=== PATIENT | male | born 1980 | race Caucasian/White ===

== ENCOUNTER 2022-08-28 10:20 | Inpatient (IN) | payer SELFPAY ==
--- NOTE | 2022-08-28 10:32 | W.ED.PSYCHS ---
HPI - Psych General: Chief Complaint: Psychiatric Symptoms Stated Complaint: MHE Time Seen by Provider: 08/28/22 10:32 History of Present Illness: Mr. Leger is a 42-year-old gentleman with history of schizophrenia presenting to the emergency department due to worsening paranoia. He reports symptoms of been worsening for a number of weeks now and he feels anxious at times hearing voices telling him to get out. Denies self-harm or suicidal or homicidal ideation. Otherwise denies medical concerns. Intensity symptoms is moderate to severe. Course is worsened. He is originally from [place] and has had care in [facility] and also possibly care in [place], recently hospitalized in [facility]. Endorses Invega injectable which has made him feel worse as well as Abilify, BuSpar, melatonin all of which have not helped significantly with symptoms. He does stated that prior hospitalizations have helped occasionally. Symptoms have never been extremely well controlled. No other specific changes in health, exacerbating, or alleviating factors identified. Onset (ago): week(s) Duration: getting worse History of same: Yes Context: significant life stressor Associated psychiatric symptoms: racing thoughts and auditory hallucinations Review of Systems General: Reports: 10 or more systems reviewed and unremarkable except in HPI and below PFSH ED PFSH: Medical History Schizophrenia Social History Smoking and tobacco status: current every day smoker e-cigarettes Physical Exam Const: COMMON NORMALS: alert GENERAL APPEARANCE: cooperative and well developed HENMT: COMMON NORMALS: normocephalic and atraumatic HEAD & SCALP: normocephalic and atraumatic Eye: COMMON NORMALS: conjunctivae normal CONJUNCTIVA: Yes conjunctivae normal SCLERA: sclerae normal Neck/C-Spine: COMMON NORMALS: supple GENERAL: Yes trachea midline Resp: COMMON NORMALS: clear to auscultation bilaterally EFFORT & INSPECTION: Yes able to speak in complete sentences AUSCULTATION: clear to auscultation bilaterally Cardio: COMMON NORMALS: regular rate and regular rhythm RATE: regular rate RHYTHM: regular rhythm GI: COMMON NORMALS: Soft to palpation PALPATION: Yes Soft to palpation and No Tenderness to palpation present (GI) Extremity: GENERAL: Yes normal exam except as noted and No edema Neuro: COMMON NORMALS: moves all extremities SENSORIUM/ORIENTATION: Yes alert and No Orientation impaired Psych: COMMON NORMALS: mental status grossly normal and Normal thought process present THOUGHT PROCESS: Normal thought process present Course Vital Signs: Vital signs: Vital Signs Temperature 97.6 F 09/09/22 23:06 Pulse Rate 60 09/09/22 23:06 Respiratory Rate 18 09/09/22 23:06 Blood Pressure 95/61 09/09/22 23:06 Pulse Oximetry 96 09/09/22 23:06 Oxygen Delivery Me thod 09/08/22 22:00 MDM - Psych Medical Decision Making 42-year-old gentleman with psychiatric history presenting with suicidal ideation and worsening paranoia. Exam as above, calm and cooperative. Patient is nontoxic without medical complaints at this time. Labs without significant abnormality on hematologic or metabolic panel. Urine drug screen negative, toxic ingestions negative. Given clinical exam and provided clinical history there is no indication for imaging at this time. Due to worsening symptoms it is reasonable to admit the patient for further psychiatric management. Based on ED evaluation at this point there is no obvious condition that would preclude the patient from inpatient management of psychiatric concerns. The results of ED evaluation were discussed with the patient including plan for admission due to requirement for level of care not available if discharged to prevent significant worsening/deterioration. Patient agreeable with plan. Discussed with psychiatry service who was agreeable to admit patient. Medical Records I reviewed the patient's medical records. Lab Data I reviewed the patient's lab results. 08/28/22 11:58 08/28/22 11:58 Laboratory Results WBC 7.5 10^3/uL (4.0-10.0) 08/28/22 11:58 RBC 4.68 10^6/uL (4.1-5.3) 08/28/22 11:58 Hgb 14.5 g/dL (11.7-16.6) 08/28/22 11:58 Hct 41.3 % (42.0-52.0) L 08/28/22 11:58 MCV 88.2 fl (80-94) 08/28/22 11:58 MCH 31.0 pg (28.0-34.0) 08/28/22 11:58 MCHC 35.1 g/dL (30.0-36.0) 08/28/22 11:58 RDW 12.2 % (12.1-15.1) 08/28/22 11:58 Plt Count 257 10^3/cmm (130-400) 08/28/22 11:58 MPV 10.1 fL (7.4-10.4) 08/28/22 11:58 Neut % (Auto) 73.1 % 08/28/22 11:58 Lymph % (Auto) 18.9 % 08/28/22 11:58 Bartholomew % (Auto) 6.4 % 08/28/22 11:58 Eos % (Auto) 0.8 % 08/28/22 11:58 Baso % (Auto) 0.7 % 08/28/22 11:58 Neut # (Auto) 5.46 10^3/uL (1.8-7.7) 08/28/22 11:58 Lymph # (Auto) 1.4 10^3/uL (0.8-4.8) 08/28/22 11:58 Bartholomew # (Auto) 0.5 10^3/uL (0.2-0.9) 08/28/22 11:58 Eos # (Auto) 0.1 10^3/uL (0.0-0.8) 08/28/22 11:58 Baso # (Auto) 0.1 10^3/uL (0.0-0.1) 08/28/22 11:58 Nucleated RBC % (auto) 0 % 08/28/22 11:58 Nucleated RBCs # 0.0 /100WBC 08/28/22 11:58 Sodium 139 mmol/L (136-145) 08/28/22 11:58 Potassium 4.1 mmol/L (3.5-5.1) 08/28/22 11:58 Chloride 102 mmol/L (98-107) 08/28/22 11:58 Carbon Dioxide 27 mmol/L (22-29) 08/28/22 11:58 Anion Gap 14.1 (5-19) 08/28/22 11:58 BUN 13 mg/dL (6-20) 08/28/22 11:58 Creatinine 0.8 mg/dL (0.7-1.2) 08/28/22 11:58 GFR Calculation 107.1 mL/min (90-130) 08/28/22 11:58 Glucose 94 mg/dL (65-115) 08/28/22 11:58 Calculated Osmolality 288 mOsm/kg (285-295) 08/28/22 11:58 Calcium 9.2 mg/dL (8.5-10.5) 08/28/22 11:58 Total Bilirubin 0.5 mg/dL (0.15-1.2) 08/28/22 11:58 AST 24 U/L (0-40) 08/28/22 11:58 ALT 28 U/L (0-41) 08/28/22 11:58 Alkaline Phosphatase 95 U/L (40-130) 08/28/22 11:58 Total Protein 6.9 g/dL (6.6-8.7) 08/28/22 11:58 Albumin 4.1 g/dL (3.5-5.2) 08/28/22 11:58 Globulin 2.8 g/dL (1.3-4.6) 08/28/22 11:58 TSH 0.85 uIU/mL (0.27-4.20) 08/28/22 11:58 Salicylates < 0.3 mg/dL (3-10) L 08/28/22 11:58 Urine Opiates Screen Negative ng/mL (Negative) 08/28/22 12:15 Acetaminophen < 5.0 ug/mL (10-30) L 08/28/22 11:58 Ur Barbiturates Screen Negative ng/mL (Negative) 08/28/22 12:15 Ur Phencyclidine Scrn Negative ng/mL (Negative) 08/28/22 12:15 Ur Amphetamines Screen Negative ng/mL (Negative) 08/28/22 12:15 U Benzodiazepines Scrn Positive ng/mL (Negative) H 08/28/22 12:15 Urine Cocaine Screen Negative ng/mL (Negative) 08/28/22 12:15 U Marijuana (THC) Screen Negative ng/mL (Negative) 08/28/22 12:15 Ethyl Alcohol < 10 mg/dL (0-10) 08/28/22 11:58 Discharge Plan Discharge Patient Disposition: Admitted As Inpatient Admit Provider: Munir Hamilton Clinical Impression: Schizophrenia, Acute anxiety, Paranoia, Auditory hallucination Condition: Stable Discharge Diet: Regular Discharge Activity: Resume usual activity Coding Level of Care Code ED Staffing Manager for Chg Fwd Exam Comprehensive
[2022-08-28 10:43] VITALS: BP 126/69; PULSE 73; RESP 18; O2SAT 97
[2022-08-28 12:05] LABS: Basophils # 0.1 10^3/uL (0.0-0.1); Basophils % 0.7 %; Eosinophils # 0.1 10^3/uL (0.0-0.8); Eosinophils % 0.8 %; Hematocrit 41.3 % (42.0-52.0); Hemoglobin 14.5 g/dL (11.7-16.6); Lymphocytes # 1.4 10^3/uL (0.8-4.8); Lymphocytes % 18.9 %; Mean Corpuscular HGB Conc 35.1 g/dL (30.0-36.0); Mean Corpuscular Volume 88.2 fl (80-94); Mean Platelet Volume 10.1 fL (7.4-10.4); Monocytes # 0.5 10^3/uL (0.2-0.9); Monocytes % 6.4 %; Neutrophils # 5.46 10^3/uL (1.8-7.7); Neutrophils % 73.1 %; Nucleated Red Blood Cells % 0 %; Platelet Count 257 10^3/cmm (130-400); Red Blood Count 4.68 10^6/uL (4.1-5.3); Red Cell Distribution Width 12.2 % (12.1-15.1); White Blood Count 7.5 10^3/uL (4.0-10.0)
[2022-08-28 12:34] LABS: Amphetamines Screen Urine Negative (Negative); Barbiturates Screen Urine Negative (Negative); Benzodiazepines Screen Urine Positive (Negative); Cocaine Screen Urine Negative (Negative); Opiate Screen Urine Negative (Negative); PCP Screen Urine Negative (Negative); THC Screen Urine Negative (Negative)
[2022-08-28 12:53] LABS: Alanine Aminotransferase 28 U/L (0-41); Albumin Level 4.1 g/dL (3.5-5.2); Alkaline Phosphatase 95 U/L (40-130); Anion Gap 14.1 (5-19); Aspartate Amino Transferase 24 U/L (0-40); Blood Urea Nitrogen 13 mg/dL (6-20); Calcium 9.2 mg/dL (8.5-10.5); Carbon Dioxide 27 mmol/L (22-29); Chloride 102 mmol/L (98-107); Globulin 2.8 g/dL (1.3-4.6); Glomerular Filtration Rate 107.1 mL/min (90-130); Glucose 94 mg/dL (65-115); Osmolality Calculated 288 mOsm/kg (285-295); Potassium 4.1 mmol/L (3.5-5.1); Sodium 139 mmol/L (136-145); Thyroid Stimulating Hormone 0.85 uIU/mL (0.27-4.20); Total Bilirubin 0.5 mg/dL (0.15-1.2); Total Protein 6.9 g/dL (6.6-8.7)
[2022-08-28 12:54] LABS: Acetaminophen < 5.0 ug/mL (10-30); Alcohol Level < 10 mg/dL (0-10); Salicylate < 0.3 mg/dL (3-10)
[2022-08-28 13:56] VITALS: BP 126/69; PULSE 73; RESP 18; O2SAT 97
[2022-08-28 15:00] VITALS: BP 109/59; PULSE 68; RESP 18; TEMP 36.7; O2SAT 95
[2022-08-28] MEDS: magnesium hydroxide 30 mL UDC PO (15:44)
[2022-08-28] MEDS: hyDROXYzine 25 mg Capsule 50 MG PO (15:44)
--- NOTE | 2022-08-28 15:47 | PC.NURSE ---
Admission and PRN Meds Patient stated he was hospitalized right before coming here in [place], [place] for 3-5 days. He says they diagnosed him with schizophrenia and then released him to his aunt. He said he then became very nervous and anxious about being out on his own and afraid because he was hearing voices. Patient denies SI/HI and VH, but states he hears voices throughout the day saying, stop, go, hurry! He states he is homeless and recently split from his . He also says he took his mom's car to come here and that he's worried she'll be really mad at him. He is from [place] and says he moved here recently for a change of scenery and because of the falling out with his . He endorsed abusing alcohol over 5 months ago and that he hasn't drank or used drugs since. Patient stated he was not feeling depressed, but was feeling extremely anxious. Patient bounced both of his legs and ffeet throughout assessment. This RN voiced emotional support and offered patient hydroxyzine 50 mg PO which he then took along with milk of magnesia for constipation since he hadn't had a bowel movement in 4 days.
--- NOTE | 2022-08-28 19:05 | W.PM.NPUH&PS ---
Providers/Chief Complaint Admitting Physician: Munir Hamilton MD Chief Complaint: auditory hallucinations HPI NPU History of Present Illness Ty Leger is a 42 year old male with a history of schizophrenia who initially presented to the emergency department with complaints of active paranoia and auditory hallucinations. He states that his hallucinations had told him to get out of his current place and move. He reports that 2 weeks ago he had been residing in [place] and the voices had told him to go east. He reports that recently he had just been discharged from a psychiatric facility and [facility] after a 3-day stay there approximately 10 days ago. He had reported that he had been prescribed Abilify and Invega Sustenna but states that it has not been helping. He reports no thoughts of hurting himself or others. He states that the voices have been prominent for the past 5 years. He had reported that the auditory hallucinations had initially begun based on use of methamphetamine but states that he has continued to have auditory hallucinations despite not having used in several months. He did not endorse any history of manic symptoms. He had not endorsed any history of depressed mood. He did not endorse any history of active anxiety other than feeling nervous about the voices that were commanding him to move out of his residence area. Inpatient psychiatric history: He reports being hospitalized 4-5 times in the past with a diagnosis schizophrenia beginning at the age of 37. He reports having been hospitalized in [place] in [place] in the past. Outpatient psychiatric history: He reports having been treated under Dr. Canela in [place] on an outpatient basis. He reported his previous psychotropic use included BuSpar, Abilify, Invega intramuscular, Seroquel, and Zyprexa. Drug and alcohol history: He had reported a past history of opiate dependence for which she is currently in Suboxone maintenance program. He had also reported a history of for several years of using methamphetamines but states he has been sober for 5 months after a 10-year history of use of methamphetamine. Medications: Suboxone 8 mg twice a day Medical history: None reported Surgical history: None: Legal history: Patient denies any legal problems currently. Social history: Patient was born and raised in [place] by his biological parents. He had reported that his father had a history of methamphetamine abuse. He has 1 younger sister who also is incarcerated due to methamphetamine related charges. He reported no previous history of sexual physical or emotional abuse. He graduated from high school and currently works in repairing automatic transmissions in vehicles. He had reported having been discharged from the [facility] after 1 year on a general discharge. He reports that he is from his and has 3 children who are currently residing with his . Meds NPU Home Medications Medication Instructions Recorded Confirmed Last Taken Type buprenorphine 8 mg-naloxone 2 mg 1 tab sublingual BID 08/28/22 08/28/22 Unknown History sublingual tablet Allergies Allergy/AdvReac Type Severity Reaction Status Date / Time trazodone Allergy ADR-Confusi Verified 08/28/22 15:58 on ziprasidone [From Geodon] Allergy ADR-Confusi Verified 08/28/22 15:58 on PFSH NPU PFSH: Medical History Schizophrenia Social History Smoking and tobacco status: current every day smoker e-cigarettes Mental Status Exam MSE Comments: He is a disheveled white male who appeared his stated age who was pleasant and cooperative on interview. He had fair eye contact. There was no evidence of any abnormal involuntary motor movements tics or tremors appreciated. His mood was described as anxious. His affect was mood congruent and concerned. His speech was normal in regards to rate rhythm and prosody. His thought process was linear and logical and goal-directed. His thought content showed no evidence of active suicidal or homicidal ideation. He did show evidence of paranoia and did appear to be at times responding to internal stimuli. There was no evidence of any visual hallucinations. His attention and concentration appeared poor. His recent and remote memory appeared grossly intact. he was alert and oriented to person place and time. Vitals/I&O/Wt Last Vital Signs Temp 98.1 F 08/28/22 15:00 Pulse 68 08/28/22 15:00 Resp 18 08/28/22 15:00 BP 109/59 08/28/22 15:00 Pulse Ox 95 08/28/22 15:00 O2 Del Method 08/28/22 14:36 Weight last 48 hrs Weight 95.254 kg Data NPU 08/28/22 11:58 12/22/22 11:58 A&P Assessment and plan (1) Paranoia: (2) Auditory hallucination: (3) Schizophrenia: Plan Ty is a 42-year-old white male with a history of schizophrenia currently noncompliant with his medications with reports of increased paranoia and auditory hallucinations. 1. Discussed risks and benefits of medication with Ty and he was agreeable to trial of Latuda 40 mg at night to target psychosis. 2. Encourage individual group and milieu therapy. 3. Continue every 15 minute checks for safety 4. Recommend sober living treatment at the highest level of care to which the patient is willing to commit 5. Attempt to gather collateral information including previous records of possible Involuntary Hold Information 96 Hour Hold: 96 Hour Involuntary Admission: No Attestations NPU Medical Necessity Statement*: Inpatient hospitalization is medically necessary and clinically appropriate intervention at this time. We will monitor medications and make changes as indicated. Patient will be in the hospital for over 2 midnights with likely length of stay of 5 to 7 days. Coding Level of Care Code New Pt Acute Geophysical Laboratory Supervisor for Nilda Simpson Patient Type New History Problem Focused Exam Problem Focused Medical Decision Making Straight Forward Diagnoses Paranoia F22 Auditory hallucination R44.0 Schizophrenia F20.9
[2022-08-28 19:28] VITALS: BP 109/72; PULSE 60; RESP 18; TEMP 36.7; O2SAT 95
[2022-08-28] MEDS: lurasidone 80 mg Tablet 40 MG PO (20:40)
[2022-08-28] MEDS: buprenorphine-naloxone 4-1 mg Film 2 EACH SUBLINGUAL (20:41)
[2022-08-29 06:00] VITALS: RESP 16
[2022-08-29] MEDS: buprenorphine-naloxone 4-1 mg Film 2 EACH SUBLINGUAL ×2 (08:17→18:12)
--- NOTE | 2022-08-29 10:48 | PC.OT ---
OT Eval attempted - Patient in group at time of evlaution, will attempt again later this day.
[2022-08-29 14:00] VITALS: BP 99/62; PULSE 52; RESP 16; TEMP 36.7; O2SAT 96
--- NOTE | 2022-08-29 19:30 | W.PM.NPUPNS ---
Subjective NPU Subjective: The patient is a 42-year-old white male with a history of schizophrenia admitted with auditory hallucinations and paranoia. He had remained in his room most of the day. He continued to report hearing voices telling him to run. He reported no side effects from his Latuda. He had reported that the voices were not commanding him to hurt himself and he was able to contract for safety. He reported no recent depression. He had reported that he did not have any cravings for opiates and was tolerating Suboxone without any difficulty. He had reported a decline in overall motivation and struggles with completion of tasks including routine activities of daily living. Mental Status Exam MSE Comments: He is a disheveled white male who appeared his stated age who was pleasant and cooperative on interview. He had fair eye contact. There was no evidence of any abnormal involuntary motor movements tics or tremors appreciated. His mood was described as allright His affect was blunted. His speech was normal in regards to rate and monotone. His thought process was linear and logical and goal-directed. His thought content showed no evidence of active suicidal or homicidal ideation. He did show evidence of paranoia and did appear to be at times responding to internal stimuli. There was no evidence of any visual hallucinations and he endorsed auditory hallucinations. His attention and concentration appeared poor. His recent and remote memory appeared grossly intact. he was alert and oriented to person place and time. Vitals/I&O/Wt Last Vital Signs Temp 98.1 F 08/29/22 14:00 Pulse 52 L 08/29/22 14:00 Resp 16 08/29/22 14:00 BP 99/62 08/29/22 14:00 Pulse Ox 96 08/29/22 14:00 O2 Del Method 08/28/22 14:36 Weight last 48 hrs Weight 95.254 kg Data NPU 08/28/22 11:58 08/28/22 11:58 A&P Assessment and plan (1) Paranoia: (2) Auditory hallucination: (3) Schizophrenia: Plan Ty is a 42-year-old white male with a history of schizophrenia currently noncompliant with his medications with reports of increased paranoia and auditory hallucinations. 1. Continue Latuda 40 mg at night and titrate as needed to target psychosis. 2. Encourage individual group and milieu therapy. 3. Continue every 15 minute checks for safety 4. Recommend sober living treatment at the highest level of care to which the patient is willing to commit 5. Attempt to gather collateral information including previous records of possible Involuntary Hold Information 96 Hour Hold: 96 Hour Involuntary Admission: No Attestations NPU Medical Necessity Statement*: Inpatient hospitalization is medically necessary and clinically appropriate intervention at this time. We will monitor medications and make changes as indicated with likely length of stay of 5 to 7 days. Coding Level of Care Code Established Pt Acute Commission Associate for Nilda Simpson Patient Type Established History Problem Focused Exam Problem Focused Medical Decision Making Straight Forward Diagnoses Paranoia F22 Auditory hallucination R44.0 Schizophrenia F20.9
[2022-08-29] MEDS: lurasidone 80 mg Tablet 40 MG PO (21:02)
[2022-08-30 06:00] VITALS: RESP 16
[2022-08-30] MEDS: buprenorphine-naloxone 4-1 mg Film 2 EACH SUBLINGUAL ×2 (09:29→17:34)
[2022-08-30 14:00] VITALS: BP 106/71; PULSE 56; RESP 16; TEMP 36.8; O2SAT 95
--- NOTE | 2022-08-30 18:40 | W.PM.NPUPNS ---
Subjective NPU Subjective: Patient presented today unknown to this insurance underwriter sales. He reports that he is being here for a few days and it he Dr. Hamilton had him working on his psychosis. We reviewed different antipsychotic medications he has taken without success and he did endorse that they started him on Latuda and that he has had some improvement since then. We discussed target doses and continue to work towards discharge next week. Mental Status Exam MSE Comments: This is an overweight versus obese white male in hospital scrubs with limited grooming but adequate eye contact. No vital movement except for mild psychomotor retardation. Cooperative with exam in mild distress. Speech was normal rate, decreased volume. Mood described as a little better. His affect was blunted. His thought process was linear and logical and goal-directed. His thought content showed no evidence of active suicidal or homicidal ideation. He did show evidence of paranoia and did appear to be at times responding to internal stimuli. There was no evidence of any visual hallucinations and he endorsed auditory hallucinations. His attention and concentration appeared intact and his recent and remote memory appeared grossly intact, but none were formally tested. Attention and concentration were intact. He was alert and oriented to person place and time. Insight and judgment appear improving and impulse control is limited. Vitals/I&O/Wt Last Vital Signs Temp 98.2 F 08/30/22 20:31 Pulse 74 08/30/22 20:31 Resp 17 08/30/22 20:31 BP 116/82 08/30/22 20:31 Pulse Ox 97 08/30/22 20:31 O2 Del Method 08/30/22 20:31 Weight last 48 hrs Weight 86.545 kg Data NPU 08/28/22 11:58 08/28/22 11:58 A&P Assessment and plan (1) Paranoia: (2) Auditory hallucination: (3) Schizophrenia: Plan Ty is a 42-year-old white male with a history of schizophrenia currently noncompliant with his medications with reports of increased paranoia and auditory hallucinations. 1. Continue Latuda 40 mg at night and titrate as needed to target psychosis. 2. Encourage individual group and milieu therapy. 3. Continue every 15 minute checks for safety 4. Recommend sober living treatment at the highest level of care to which the patient is willing to commit 5. Attempt to gather collateral information including previous records of possible Involuntary Hold Information 96 Hour Hold: 96 Hour Involuntary Admission: No Attestations NPU Medical Necessity Statement*: Inpatient hospitalization is medically necessary and clinically appropriate intervention at this time. We will monitor medications and make changes as indicated. Likely length of stay of 4-6 days. Coding Level of Care Code Acute Public Health Outreach Worker for [facility] Fwd Diagnoses Paranoia F22 Auditory hallucination R44.0 Schizophrenia F20.9
[2022-08-30] MEDS: lurasidone 80 mg Tablet 40 MG PO (20:21)
[2022-08-30 20:31] VITALS: BP 116/82; PULSE 74; RESP 17; TEMP 36.8; O2SAT 97
[2022-08-31 06:00] VITALS: RESP 18
[2022-08-31] MEDS: buprenorphine-naloxone 4-1 mg Film 2 EACH SUBLINGUAL ×2 (08:42→20:17)
--- NOTE | 2022-08-31 11:21 | W.PM.NPUPNS ---
Subjective NPU Subjective: Patient presents today reporting that he feels his psychosis is resolving but that he is still feeling anxious. We discussed the risks, benefits and alternatives of a trial of Neurontin 100 mg p.o. 3 times daily and he understood and agreed to proceed as is documented in this note. He reported having it before but not being clear if it was for anxiety but he would be willing to try. He reported that Vistaril and BuSpar have been ineffective in attempting to decrease his anxiety in the past. Mental Status Exam MSE Comments: This is an overweight versus obese white male in hospital scrubs with limited grooming but adequate eye contact. No vital movement except for mild psychomotor retardation. Cooperative with exam in mild distress. Speech was normal rate, decreased volume. Mood described as a little anxious. His affect was congruent and brighter. His thought process was linear and logical and goal-directed. His thought content showed no evidence of active suicidal or homicidal ideation. He did show evidence of paranoia but does not currently appear to be responding to internal stimuli. There was no evidence of any visual hallucinations and he endorsed auditory hallucinations. His attention and concentration appeared intact and his recent and remote memory appeared grossly intact, but none were formally tested. Attention and concentration were intact. He was alert and oriented to person place and time. Insight and judgment appear improving and impulse control is limited. Vitals/I&O/Wt Last Vital Signs Temp 98.2 F 08/30/22 20:31 Pulse 74 08/30/22 20:31 Resp 18 08/31/22 06:00 BP 116/82 08/30/22 20:31 Pulse Ox 97 08/30/22 20:31 O2 Del Method 08/30/22 20:31 Weight last 48 hrs Weight 86.545 kg Data NPU 08/28/22 11:58 08/28/22 11:58 A&P Assessment and plan (1) Paranoia: (2) Auditory hallucination: (3) Schizophrenia: Plan Ty is a 42-year-old white male with a history of schizophrenia currently noncompliant with his medications with reports of increased paranoia and auditory hallucinations. 1. Continue Latuda 40 mg at night and titrate as needed to target psychosis. Start Neurontin 100 mg p.o. 3 times daily for anxiety.. 2. Encourage individual group and milieu therapy. 3. Continue every 15 minute checks for safety 4. Recommend sober living treatment at the highest level of care to which the patient is willing to commit 5. Attempt to gather collateral information including previous records of possible Involuntary Hold Information 96 Hour Hold: 96 Hour Involuntary Admission: No Attestations NPU Medical Necessity Statement*: Inpatient hospitalization is medically necessary and clinically appropriate intervention at this time. We will monitor medications and make changes as indicated. Likely length of stay of 2-4 days. Coding Level of Care Code Acute Blueprinting And Photocopy Supervisor for Nilda Simpson Diagnoses Paranoia F22 Auditory hallucination R44.0 Schizophrenia F20.9
[2022-08-31 14:00] VITALS: BP 103/62; PULSE 62; RESP 18; TEMP 36.8; O2SAT 94
[2022-08-31 20:01] VITALS: BP 105/76; PULSE 98; RESP 18; TEMP 36.9; O2SAT 99
[2022-08-31] MEDS: lurasidone 80 mg Tablet 40 MG PO (20:18)
[2022-09-01 06:00] VITALS: RESP 18
[2022-09-01] MEDS: buprenorphine-naloxone 4-1 mg Film 2 EACH SUBLINGUAL ×2 (08:35→17:29)
[2022-09-01] MEDS: gabapentin 100 mg Capsule PO ×3 (08:35→19:38)
[2022-09-01 14:00] VITALS: BP 98/70; PULSE 50; RESP 16; TEMP 36.7; O2SAT 93
--- NOTE | 2022-09-01 14:09 | W.PM.NPUPNS ---
Subjective NPU Subjective: Patient presented today reporting that he is feeling a little better with the Neurontin. We discussed a thought about possibly getting into addiction treatment. He also discussed the possibility of going back home but he was not sure. We discussed the fact that Dr. Hamilton would be here tomorrow and they would be able to continue a discussion about discharge planning. He reports that he is eating fine and sleeping better. Mental Status Exam MSE Comments: This is an overweight versus obese white male in hospital scrubs with limited grooming but adequate eye contact. No vital movement except for mild psychomotor retardation. Cooperative with exam in mild distress. Speech was normal rate, decreased volume. Mood described as a little better. His affect was congruent and brighter. His thought process was linear and logical and goal-directed. His thought content showed no evidence of active suicidal or homicidal ideation. He did show evidence of paranoia but does not currently appear to be responding to internal stimuli. There was no evidence of any visual hallucinations and he endorsed auditory hallucinations. His attention and concentration appeared intact and his recent and remote memory appeared grossly intact, but none were formally tested. Attention and concentration were intact. He was alert and oriented to person place and time. Insight and judgment appear improving and impulse control is limited. Vitals/I&O/Wt Last Vital Signs Temp 98.0 F 09/01/22 14:00 Pulse 50 L 09/01/22 14:00 Resp 16 09/01/22 14:00 BP 98/70 09/01/22 14:00 Pulse Ox 93 09/01/22 14:00 O2 Del Method 09/01/22 14:00 Weight last 48 hrs Weight 89.902 kg Data NPU 08/28/22 11:58 08/28/22 11:58 A&P Assessment and plan (1) Paranoia: (2) Auditory hallucination: (3) Schizophrenia: Plan Ty is a 42-year-old white male with a history of schizophrenia currently noncompliant with his medications with reports of increased paranoia and auditory hallucinations. 1. Continue Latuda 40 mg at night and titrate as needed to target psychosis. Started Neurontin 100 mg p.o. 3 times daily for anxiety. 2. Encourage individual group and milieu therapy. 3. Continue every 15 minute checks for safety 4. Recommend sober living treatment at the highest level of care to which the patient is willing to commit 5. Attempt to gather collateral information including previous records of possible Involuntary Hold Information 96 Hour Hold: 96 Hour Involuntary Admission: No Attestations NPU Medical Necessity Statement*: Inpatient hospitalization is medically necessary and clinically appropriate intervention at this time. We will monitor medications and make changes as indicated. Likely length of stay of 2-4 days. Coding Level of Care Code Acute Home Health [facility]na for [facility] Diagnoses Paranoia F22 Auditory hallucination R44.0 Schizophrenia F20.9
[2022-09-01] MEDS: lurasidone 80 mg Tablet 40 MG PO (19:37)
[2022-09-01 19:56] VITALS: BP 118/79; PULSE 82; RESP 18; TEMP 36.3; O2SAT 98
[2022-09-01] MEDS: nicotine 4 mg lozenge MUCOUS MEM (21:45)
[2022-09-02 06:00] VITALS: RESP 18
[2022-09-02] MEDS: gabapentin 100 mg Capsule PO ×3 (08:18→19:54)
[2022-09-02] MEDS: buprenorphine-naloxone 4-1 mg Film 2 EACH SUBLINGUAL ×2 (08:18→17:22)
--- NOTE | 2022-09-02 13:49 | P.NPUPN_ITS ---
Subjective NPU Subjective: The patient is a 42-year-old white male with a history of schizophrenia admitted with auditory hallucinations and paranoia. The patient continue to report active presence of auditory hallucinations but reports that he continues to feel that it has been less distracting. He reports some rivera nued paranoia. He reports no cravings for opiates. He reports that he intends on returning back to [place] when he is stabilized. He denies any mood symptoms currently. He does report that he struggles with isolation and anxiety. He reports that he feels less distracted by the thoughts and voices when he is by himself and has been minimally attending group on the milieu. He has been engaging in increased amounts of completion of activities of daily living including brushing and engaging in physical self-care. Mental Status Exam MSE Comments: This is an overweight versus obese white male in hospital scrubs with limited grooming but adequate eye contact. No vital movement except for mild psychomotor retardation. Cooperative with exam in mild distress. Speech was normal rate, decreased volume. Mood described as okay. His affect was mood incongruent, and blunted. His thought process was linear and logical and goal- directed. There was less evidence of thought blocking. His thought content showed no evidence of active suicidal or homicidal ideation. He did show evidence of paranoia and did not appear to be actively responding to internal stimuli. There was no evidence of any visual hallucinations and he endorsed auditory hallucinations. His attention and concentration appeared intact and his recent and remote memory appeared grossly intact, but none were formally tested. Attention and concentration were intact. He was alert and oriented to person place and time. Insight and judgment appear improving and impulse control is limited. Vitals/I&O/Wt Last Vital Signs Temp 97.3 F L 09/01/22 19:56 Pulse 82 09/01/22 19:56 Resp 18 09/02/22 06:00 BP 118/79 09/01/22 19:56 Pulse Ox 98 09/01/22 19:56 O2 Del Method 08/30/22 20:31 Data NPU 08/28/22 11:58 08/28/22 11:58 A&P Assessment and plan (1) Paranoia: (2) Auditory hallucination: (3) Schizophrenia: Plan Ty is a 42-year-old white male with a history of schizophrenia currently noncompliant with his medications with reports of increased paranoia and auditory hallucinations. 1. Increase Latuda to 60 mg at night and titrate as needed to target psychosis. Continue Neurontin 100 mg p.o. 3 times daily for anxiety. 2. Encourage individual group and milieu therapy. 3. Continue every 15 minute checks for safety 4. Recommend sober living treatment at the highest level of care to which the patient is willing to commit 5. Attempt to gather collateral information including previous records of possible Involuntary Hold Information 96 Hour Hold: 96 Hour Involuntary Admission: No Attestations NPU Medical Necessity Statement*: Inpatient hospitalization is medically necessary and clinically appropriate intervention at this time. We will monitor medications and make changes as indicated. Likely length of stay of 3-6 days. Coding Level of Care Code Established Pt Acute Chemical Inspector for Nilda Simpson Patient Type Established History Problem Focused Exam Problem Focused Medical Decision Making Straight Forward Diagnoses Paranoia F22 Auditory hallucination R44.0 Schizophrenia F20.9
[2022-09-02 14:00] VITALS: BP 115/78; PULSE 62; RESP 18; O2SAT 97
[2022-09-02 19:47] VITALS: RESP 16
[2022-09-02] MEDS: lurasidone 20 mg Tablet 60 MG PO (19:53)
[2022-09-03 06:00] VITALS: RESP 18
[2022-09-03] MEDS: gabapentin 100 mg Capsule PO (10:00)
[2022-09-03] MEDS: buprenorphine-naloxone 4-1 mg Film 2 EACH SUBLINGUAL ×2 (10:00→19:12)
[2022-09-03 14:00] VITALS: RESP 18
--- NOTE | 2022-09-03 15:00 | W.PM.NPUPNS ---
Subjective NPU Subjective: The patient is a 42-year-old white male with a history of schizophrenia admitted with auditory hallucinations and paranoia. Patient reported that the auditory hallucinations were still telling him to run but states that they were less frequent and decreased in intensity. He reported no cravings for opiates. He reported no side effects from his Latuda at this time. He reports continued lack of motivation. He denied any depressed mood at this time. He had reported continued paranoia and appeared to isolate a himself on the milieu. Mental Status Exam MSE Comments: This is an overweight versus obese white male in hospital scrubs with limited grooming but adequate eye contact. No vital movement except for mild psychomotor retardation. Cooperative with exam in mild distress. Speech was normal in rate, decreased volume, normal prosody. Mood described as allright. His affect was mood incongruent, and blunted. His thought process was linear and logical and goal-directed. There was less evidence of thought blocking. His thought content showed no evidence of active suicidal or homicidal ideation. He did show continued evidence of paranoia and did not appear to be actively responding to internal stimuli. There was no evidence of any visual hallucinations and he endorsed auditory hallucinations. His attention and concentration appeared intact and his recent and remote memory appeared grossly intact, but none were formally tested. Attention and concentration were intact. He was alert and oriented to person place and time. Insight and judgment appear improving and impulse control is limited. Vitals/I&O/Wt Last Vital Signs Temp 97.3 F L 09/01/22 19:56 Pulse 62 09/02/22 14:00 Resp 18 09/03/22 06:00 BP 115/78 09/02/22 14:00 Pulse Ox 97 09/02/22 14:00 O2 Del Method 08/30/22 20:31 Data NPU 08/28/22 11:58 08/28/22 11:58 A&P Assessment and plan (1) Paranoia: (2) Auditory hallucination: (3) Schizophrenia: Plan Ty is a 42-year-old white male with a history of schizophrenia currently noncompliant with his medications with reports of increased paranoia and auditory hallucinations. 1. Continue Latuda to 60 mg at night and titrate as needed to target psychosis. Increase Neurontin 300 mg p.o. 3 times daily for anxiety. 2. Encourage individual group and milieu therapy. 3. Continue every 15 minute checks for safety 4. Recommend sober living treatment at the highest level of care to which the patient is willing to commit 5. Attempt to gather collateral information including previous records of possible Involuntary Hold Information 96 Hour Hold: 96 Hour Involuntary Admission: No Attestations NPU Medical Necessity Statement*: Inpatient hospitalization is medically necessary and clinically appropriate intervention at this time. We will monitor medications and make changes as indicated. Likely length of stay of 3-6 days. Coding Level of Care Code Established Pt Acute Market Intelligence Consultant for g [facility] Patient Type Established History Problem Focused Exam Problem Focused Medical Decision Making Straight Forward Diagnoses Paranoia F22 Auditory hallucination R44.0 Schizophrenia F20.9
[2022-09-03] MEDS: gabapentin 300 mg Capsule PO ×2 (15:08→21:38)
[2022-09-03] MEDS: lurasidone 20 mg Tablet 60 MG PO (20:53)
[2022-09-03 22:00] VITALS: RESP 16
[2022-09-04 06:00] VITALS: RESP 16
[2022-09-04] MEDS: buprenorphine-naloxone 4-1 mg Film 2 EACH SUBLINGUAL ×2 (09:03→18:18)
[2022-09-04] MEDS: gabapentin 300 mg Capsule PO ×3 (09:03→20:41)
[2022-09-04] MEDS: nicotine 2 mg Gum BUCCAL (13:58)
[2022-09-04 14:00] VITALS: RESP 18
--- NOTE | 2022-09-04 18:07 | P.NPUPN_ITS ---
Subjective NPU Subjective: The patient is a 42-year-old white male with a history of schizophrenia admitted with auditory hallucinations and paranoia. He continued to report auditory hallucinations and states that, they had continued to told him to run. He had reported tolerating the medication better. He reported fe eling less worried although he continued to remain somewhat guarded and had limited engagement on the milieu with other peers. He had reported no cravings for opiates. He had reported some pain issues at this time and it reported a significant history of chronic back and neck issues. He had reported some decrease in anxiety overall with the gabapentin prescribed. Mental Status Exam MSE Comments: This is an overweight versus obese white male in hospital scrubs with limited grooming but adequate eye contact. No vital movement except for mild psychomotor retardation. Cooperative with exam in mild distress. Speech was normal in rate, decreased volume, normal prosody. Mood described as a little better. His affect was mood incongruent, and remained blunted. His thought process was linear and logical and goal-directed. There was continued evidence of thought blocking. His thought content showed no evidence of active suicidal or homicidal ideation. He did show continued evidence of paranoia and did not appear to be actively responding to internal stimuli. There was no evidence of any visual hallucinations and he endorsed auditory hallucinations. His attention and concentration appeared intact and his recent and remote memory appeared grossly intact, but none were formally tested. Attention and concentration were intact. He was alert and oriented to person place and time. Insight and judgment appear improving and impulse control is limited. Vitals/I&O/Wt Last Vital Signs Temp 97.3 F L 09/01/22 19:56 Pulse 62 09/02/22 14:00 Resp 18 09/04/22 14:00 BP 115/78 09/02/22 14:00 Pulse Ox 97 09/02/22 14:00 O2 Del Method 08/30/22 20:31 Data NPU 08/28/22 11:58 08/28/22 11:58 A&P Assessment and plan (1) Paranoia: (2) Auditory hallucination: (3) Schizophrenia: Plan Ty is a 42-year-old white male with a history of schizophrenia currently noncompliant with his medications with reports of increased paranoia and auditory hallucinations. 1. Continue Latuda to 60 mg at night and titrate as needed to target psychosis. Continue Neurontin 300 mg p.o. 3 times daily for anxiety. 2. Encourage individual group and milieu therapy. 3. Continue every 15 minute checks for safety 4. Recommend sober living treatment at the highest level of care to which the patient is willing to commit 5. Attempt to gather collateral information including previous records if possible Involuntary Hold Information 96 Hour Hold: 96 Hour Involuntary Admission: No Attestations NPU Medical Necessity Statement*: Inpatient hospitalization is medically necessary and clinically appropriate intervention at this time. We will monitor medications and make changes as indicated. Likely length of stay of 3-6 days. Coding Level of Care Code Established Pt Acute Pasteurizing Machine Operator for Drug [facility]wd Patient Type Established History Problem Focused Exam Problem Focused Medical Decision Making Straight Forward Diagnoses Paranoia F22 Auditory hallucination R44.0 Schizophrenia F20.9
[2022-09-04] MEDS: lurasidone 20 mg Tablet 60 MG PO (20:41)
[2022-09-04] MEDS: nicotine 4 mg lozenge MUCOUS MEM (20:42)
[2022-09-04 22:00] VITALS: RESP 18
[2022-09-05] MEDS: hyDROXYzine 25 mg Capsule 50 MG PO ×2 (03:25→18:07)
[2022-09-05 06:00] VITALS: BP 108/66; PULSE 73; RESP 18; TEMP 36.6; O2SAT 97
[2022-09-05] MEDS: gabapentin 300 mg Capsule PO ×3 (09:35→20:49)
[2022-09-05 14:00] VITALS: BP 106/62; PULSE 66; RESP 16; TEMP 36.7; O2SAT 94
[2022-09-05] MEDS: lurasidone 20 mg Tablet 60 MG PO (18:02)
[2022-09-05] MEDS: nicotine 4 mg lozenge MUCOUS MEM (18:07)
--- NOTE | 2022-09-05 18:53 | P.NPUPN_ITS ---
Subjective NPU Subjective: The patient is a 42-year-old white male with a history of schizophrenia admitted with auditory hallucinations and paranoia. He had continue to report evidence of paranoia and reported that the voices continue to distract him. He had reported that he was comfortable with returning back to [place] but still stated that he could hear the voices telling him to run. He had reported some diminishment in regards to frequency and intensity but stated that the voices had not gone away. He had reported that Xanax had helped him manage his anxiety associated with hearing the voices but was informed that that was not a good option for him at this time. He remains isolative on the milieu. Mental Status Exam MSE Comments: This is an overweight versus obese white male in hospital scrubs with limited grooming but adequate eye contact. No vital movement except for mild psychomotor retardation. Cooperative with exam in mild distress. Speech was normal in rate, decreased volume, normal prosody. Mood described as a okay. His affect was mood incongruent, and remained blunted. His thought process was linear and logical and goal-directed. There was less thought blocking noted. His thought content showed no evidence of active suicidal or homicidal ideation. He did show continued evidence of paranoia and did not appear to be actively responding to internal stimuli. There was no evidence of any visual hallucinations and he endorsed auditory hallucinations. His attention and concentration appeared intact and his recent and remote memory appeared grossly intact, but none were formally tested. Attention and concentration were intact. He was alert and oriented to person place and time. Insight and judgment appear improving and impulse control is limited. Vitals/I&O/Wt Last Vital Signs Temp 98.1 F 09/05/22 14:00 Pulse 66 09/05/22 14:00 Resp 16 09/05/22 14:00 BP 106/62 09/05/22 14:00 Pulse Ox 94 09/05/22 14:00 O2 Del Method 09/05/22 06:00 Data NPU 08/28/22 11:58 08/28/22 11:58 A&P Assessment and plan (1) Paranoia: (2) Auditory hallucination: (3) Schizophrenia: Plan Ty is a 42-year-old white male with a history of schizophrenia currently noncompliant with his medications with reports of increased paranoia and auditory hallucinations. 1. Continue Latuda to 60 mg at night and titrate as needed to target psychosis. Continue Neurontin 300 mg p.o. 3 times daily for anxiety. 2. Encourage individual group and milieu therapy. 3. Continue every 15 minute checks for safety 4. Recommend sober living treatment at the highest level of care to which the patient is willing to commit 5. Attempt to gather collateral information including previous records if possible Involuntary Hold Information 96 Hour Hold: 96 Hour Involuntary Admission: No Attestations NPU Medical Necessity Statement*: Inpatient hospitalization is medically necessary and clinically appropriate intervention at this time. We will monitor medications and make changes as indicated with likely length of stay of 3-6 day s. Coding Level of Care Code Established Pt Acute Shuttle Operator for Nilda Simpson Patient Type Established History Problem Focused Exam Problem Focused Medical Decision Making Straight Forward Diagnoses Paranoia F22 Auditory hallucination R44.0 Schizophrenia F20.9
[2022-09-05 22:00] VITALS: RESP 16
[2022-09-06 06:00] VITALS: RESP 16
[2022-09-06] MEDS: gabapentin 300 mg Capsule PO ×3 (08:32→20:53)
[2022-09-06] MEDS: hyDROXYzine 25 mg Capsule 50 MG PO ×2 (12:26→18:10)
--- NOTE | 2022-09-06 12:28 | PC.NURSE ---
Patient Behavior Patient states he is feeling anxious, states he always has some anxiety; but feeling worse right now. Patient asked for Vistaril. Medication given PO.
[2022-09-06 14:00] VITALS: BP 103/64; PULSE 60; RESP 20; TEMP 36.6; O2SAT 98
[2022-09-06] MEDS: buprenorphine-naloxone 4-1 mg Film 2 EACH SUBLINGUAL (15:24)
--- NOTE | 2022-09-06 15:35 | P.NPUPN_ITS ---
Subjective NPU Subjective: The patient is a 42-year-old white male with a history of schizophrenia admitted with auditory hallucinations and paranoia. The patient had reported that the voices continue to tell him to run into trust no one. He states that they are occurring less frequently. He reported no side effects from his medication. He reported worsening anxiety and stated that he continued to isolate himself because he had difficulties trusting others here. He was able to sleep without any issues. The patient reported no suicidal thoughts at this time. He continued to require some prompting to engage in activities of daily living. Mental Status Exam MSE Comments: This is an overweight versus obese white male in hospital scrubs with limited grooming but adequate eye contact. No abnormal involuntary motor movements except for mild psychomotor retardation. Cooperative with exam in mild distress. Speech was normal in rate, decreased volume, normal prosody. Mood described as a okay. His affect was mood incongruent, and remained blunted. His thought process was linear and logical and goal-directed. There was less thought blocking noted. His thought content showed no evidence of active suicidal or homicidal ideation. He did show continued evidence of paranoia and did not appear to be actively responding to internal stimuli. There was no evidence of any visual hallucinations and he endorsed auditory hallucinations. His attention and concentration appeared intact and his recent and remote memory appeared grossly intact, but none were formally tested. Attention and concentration were intact. He was alert and oriented to person place and time. Insight and judgment appear improving and impulse control is limited. Vitals/I&O/Wt Last Vital Signs Temp 98.1 F 09/05/22 14:00 Pulse 66 09/05/22 14:00 Resp 16 09/06/22 06:00 BP 106/62 09/05/22 14:00 Pulse Ox 94 09/05/22 14:00 O2 Del Method 09/05/22 06:00 Data NPU 08/28/22 11:58 08/28/22 11:58 A&P Assessment and plan (1) Paranoia: (2) Auditory hallucination: (3) Schizophrenia: Plan Ty is a 42-year-old white male with a history of schizophrenia currently noncompliant with his medications with reports of increased paranoia and auditory hallucinations. 1. Continue Latuda to 60 mg at night and titrate as needed to target psychosis. Continue Neurontin 300 mg p.o. 3 times daily for anxiety. 2. Encourage individual group and milieu therapy. 3. Continue every 15 minute checks for safety 4. Recommend sober living treatment at the highest level of care to which the patient is willing to commit 5. Attempt to gather collateral information including previous records if possible Involuntary Hold Information 96 Hour Hold: 96 Hour Involuntary Admission: No Attestations NPU Medical Necessity Statement*: Inpatient hospitalization is medically necessary and clinically appropriate intervention at this time. We will monitor medications and make changes as indicated with likely length of stay of 5-7 days. Coding Level of Care Code Established Pt Acute Aeronautical Inspector for Drug Calvin Patient Type Established History Problem Focused Exam Problem Focused Medical Decision Making Straight Forward Diagnoses Paranoia F22 Auditory hallucination R44.0 Schizophrenia F20.9
[2022-09-06] MEDS: lurasidone 20 mg Tablet 60 MG PO (18:03)
[2022-09-06 20:10] VITALS: RESP 16
[2022-09-07] MEDS: gabapentin 300 mg Capsule PO ×3 (09:21→20:24)
[2022-09-07] MEDS: buprenorphine-naloxone 4-1 mg Film 2 EACH SUBLINGUAL ×2 (09:22→18:13)
--- NOTE | 2022-09-07 13:00 | W.PM.NPUPNS ---
Subjective NPU Subjective: The patient is a 42-year-old white male with a history of schizophrenia admitted with auditory hallucinations and paranoia. The patient had reported that he had been feeling better. He states that his hallucinations have diminished in intensity and frequency. He reported no side effects from the medication. Patient denied depressed mood and reported some improvement in anxiety. The patient had continue to isolate himself on the milieu but was reporting that he tends to be anxious and public places in public situations. He had reported decreased paranoia. Mental Status Exam MSE Comments: This is an overweight versus obese white male in hospital scrubs with limited grooming but adequate eye contact. No abnormal involuntary motor movements except for mild psychomotor retardation. Cooperative with exam in mild distress. Speech was normal in rate, decreased volume, normal prosody. Mood described as better. His affect was blunted. His thought process was linear and logical and goal-directed. No thought blocking appreciated. His thought content showed no evidence of active suicidal or homicidal ideation. There was evidence of mild paranoia but he did not appear to be responding to internal stimuli although he endorsed auditory hallucinations. His attention and concentration appeared intact and his recent and remote memory appeared grossly intact, but none were formally tested. Attention and concentration were intact. He was alert and oriented to person place and time. Insight and judgment appear improving and impulse control is limited. Vitals/I&O/Wt Last Vital Signs Temp 97.8 F 09/06/22 14:00 Pulse 60 09/06/22 14:00 Resp 16 09/06/22 20:10 BP 103/64 09/06/22 14:00 Pulse Ox 98 09/06/22 14:00 O2 Del Method 09/05/22 06:00 Data NPU 08/28/22 11:58 08/28/22 11:58 A&P Assessment and plan (1) Paranoia: (2) Auditory hallucination: (3) Schizophrenia: Plan Ty is a 42-year-old white male with a history of schizophrenia currently noncompliant with his medications with reports of increased paranoia and auditory hallucinations. 1. Increase Latuda to 80 mg at night. Patient appears to be improving. Continue Neurontin 300 mg p.o. 3 times daily for anxiety. 2. Encourage individual group and milieu therapy. 3. Continue every 15 minute checks for safety 4. Recommend sober living treatment at the highest level of care to which the patient is willing to commit 5. Attempt to gather collateral information including previous records if possible Involuntary Hold Information 96 Hour Hold: 96 Hour Involuntary Admission: No Attestations NPU Medical Necessity Statement*: Inpatient hospitalization is medically necessary and clinically appropriate intervention at this time. We will monitor medications and make changes as indicated with likely length of stay of 2-3 days. Coding Level of Care Code Established Pt Acute User Experience Analyst for Drug Fwd Patient Type Established History Problem Focused Exam Problem Focused Medical Decision Making Straight Forward Diagnoses Paranoia F22 Auditory hallucination R44.0 Schizophrenia F20.9
[2022-09-07 14:00] VITALS: BP 94/63; PULSE 56; RESP 18; TEMP 36.8; O2SAT 94
[2022-09-07] MEDS: lurasidone 80 mg Tablet PO (18:13)
[2022-09-07] MEDS: hyDROXYzine 25 mg Capsule 50 MG PO (20:25)
[2022-09-07 21:36] VITALS: BP 109/70; PULSE 64; RESP 18; TEMP 36.7; O2SAT 95
[2022-09-08] MEDS: buprenorphine-naloxone 4-1 mg Film 2 EACH SUBLINGUAL ×2 (08:59→20:25)
[2022-09-08] MEDS: gabapentin 300 mg Capsule PO ×3 (08:59→20:25)
--- NOTE | 2022-09-08 13:09 | W.PM.NPUPNS ---
Subjective NPU Subjective: Presented today reporting that he is doing well with the adjustments in his medications since he last saw this advertising writer. We discussed discharge planning which has been underway with the social work team. We discussed being able to get him his medications at discharge but that he would have to work with someone in the [place] Medicaid program for his refills. We discussed the possibility of discharge in the next 48 hours and she will work with the social work team towards that end as well as his family. Mental Status Exam MSE Comments: This is an overweight versus obese white male in hospital scrubs with limited grooming but adequate eye contact. No abnormal involuntary motor movements except for mild psychomotor retardation. Cooperative with exam in no acute distress. Speech was normal in rate, decreased volume, normal prosody. Mood described as better. His affect was blunted. His thought process was linear and logical and goal-directed. No thought blocking appreciated. His thought content showed no evidence of active suicidal or homicidal ideation. There was evidence of mild paranoia but he did not appear to be responding to internal stimuli although he endorsed auditory hallucinations. His attention and concentration appeared intact and his recent and remote memory appeared grossly intact, but none were formally tested. Attention and concentration were intact. He was alert and oriented to person place and time. Insight and judgment appear improving and impulse control is limited but improving. Vitals/I&O/Wt Last Vital Signs Temp 98.1 F 09/07/22 21:36 Pulse 64 09/07/22 21:36 Resp 18 09/07/22 21:36 BP 109/70 09/07/22 21:36 Pulse Ox 95 09/07/22 21:36 O2 Del Method 09/05/22 06:00 Weight last 48 hrs Weight 89.902 kg Data NPU 08/28/22 11:58 08/28/22 11:58 A&P Assessment and plan (1) Paranoia: (2) Auditory hallucination: (3) Schizophrenia: Plan Ty is a 42-year-old white male with a history of schizophrenia currently noncompliant with his medications with reports of increased paranoia and auditory hallucinations. 1. Increase Latuda to 80 mg at night. Patient appears to be improving. Continue Neurontin 300 mg p.o. 3 times daily for anxiety. 2. Encourage individual group and milieu therapy. 3. Continue every 15 minute checks for safety 4. Recommend sober living treatment at the highest level of care to which the patient is willing to commit 5. Attempt to gather collateral information including previous records if possible Involuntary Hold Information 96 Hour Hold: 96 Hour Involuntary Admission: No Attestations NPU Medical Necessity Statement*: Inpatient hospitalization is medically necessary and clinically appropriate intervention at this time. We will monitor medications and make changes as indicated. Likely length of stay of 1-2 days. Coding Level of Care Code Acute Drill Setup Operator for silvino Simpson Diagnoses Paranoia F22 Auditory hallucination R44.0 Schizophrenia F20.9
[2022-09-08 14:00] VITALS: BP 97/65; PULSE 64; RESP 17; TEMP 36.7; O2SAT 100
[2022-09-08] MEDS: hyDROXYzine 25 mg Capsule 50 MG PO (20:26)
[2022-09-08] MEDS: lurasidone 80 mg Tablet PO (20:26)
[2022-09-08 22:00] VITALS: BP 136/78; PULSE 67; RESP 18; TEMP 36.7; O2SAT 98
[2022-09-09 06:00] VITALS: RESP 18
[2022-09-09] MEDS: gabapentin 300 mg Capsule PO ×3 (09:13→19:38)
[2022-09-09] MEDS: buprenorphine-naloxone 4-1 mg Film 2 EACH SUBLINGUAL ×2 (09:13→17:33)
[2022-09-09] MEDS: hyDROXYzine 25 mg Capsule 50 MG PO (09:18)
[2022-09-09 14:00] VITALS: BP 95/61; PULSE 60; RESP 20; TEMP 36.4; O2SAT 96
--- NOTE | 2022-09-09 17:16 | P.NPUDS_ITS ---
Diagnoses at Discharge Discharge Diagnosis (1) Paranoia: Status: Acute (2) Auditory hallucination: Status: Acute (3) Schizophrenia: Status: Acute Reason for Visit Reason for Visit: auditory hallucinations Brief History: Ty Leger is a 42 year old male with a history of schizophrenia who initially presented to the emergency department with complaints of active paranoia and auditory hallucinations. He states that his hallucinations had told him to get out of his current place and move. He reports that 2 weeks ago he had been residing in [place] and the voices had told him to go east. He reports that recently he had just been discharged from a psychiatric facility and [facility] after a 3-day stay there approximately 10 days ago. He had reported that he had been prescribed Abilify and Invega Sustenna but states that it has not been helping. He reports no thoughts of hurting himself or others. He states that the voices have been prominent for the past 5 years. He had reported that the auditory hallucinations had initially begun based on use of methamphetamine but states that he has continued to have auditory hallucinations despite not having used in several months. He did not endorse any history of manic symptoms. He had not endorsed any history of depressed mood. He did not endorse any history of active anxiety other than feeling nervous about the voices that were commanding him to move out of his residence area. Inpatient psychiatric history: He reports being hospitalized 4-5 times in the past with a diagnosis schizophrenia beginning at the age of 37. He reports having been hospitalized in [place] in [place] in the past. Outpatient psychiatric history: He reports having been treated under Dr. Canela in [place] on an outpatient basis. He reported his previous psychotropic use included BuSpar, Abilify, Invega intramuscular, Seroquel, and Zyprexa. Drug and alcohol history: He had reported a past history of opiate dependence for which she is currently in Suboxone maintenance program. He had also reported a history of for several years of using methamphetamines but states he has been sober for 5 months after a 10-year history of use of methamphetamine. Medications: Suboxone 8 mg twice a day Medical history: None reported Surgical history: None: Legal history: Patient denies any legal problems currently. Social history: Patient was born and raised in [place] by his biological parents. He had reported that his father had a history of methamphetamine abu se. He has 1 younger sister who also is incarcerated due to methamphetamine related charges. He reported no previous history of sexual physical or emotional abuse. He graduated from high school and currently works in repairing automatic transmissions in vehicles. He had reported having been discharged from the [facility] after 1 year on a general discharge. He reports that he is from his and has 3 children who are currently residing with his . Hospital Course Hospital Course He slowly acclimated to the individual, group and milieu therapies provided.? He presented with active psychosis and was started on Latuda which was titrated to 80 mg daily. Additionally he was given Vistaril and Neurontin for anxiety finishing titration of Neurontin at 300 mg p.o. 3 times daily and he worked with the treatment team to get appropriate discharge options for his mental health follow-up. They were able to accomplish that. He had significant improvement during the hospitalization and was able to contract for safety outside of the hospital prior to discharge.? During hospitalization he had routine laboratory studies which were within normal limits except for a few outliers including his urinalysis.? Additionally had a general medical evaluation which is also within normal limits and revealed no new acute processes. Discharge summary: At the time of discharge, he denied lethality and his psychosis was improving.? Mood and anxiety were well managed.? Patient endorsed a plan to avoid all drugs of abuse and follow-up with the aftercare recommendations of the treatment team.? Patient was evaluated and deemed to be absent credible lethality, and had achieved the maximum benefit from an inpatient hospitalization, so was discharged. Involuntary Hold Information 96 Hour Hold: 96 Hour Involuntary Admission: No Mental Status Exam MSE Comments: This is an overweight versus obese white male in hospital scrubs with improving grooming but adequate eye contact. No vital movement except for mild psychomotor retardation. Cooperative with exam in no acute distress. Speech was normal rate, decreased volume. Mood described as better. His affect was congruent and brighter. His thought process was linear and logical and goal-directed. His thought content showed no evidence of active suicidal or homicidal ideation. He did show evidence of paranoia but does not currently appear to be responding to internal stimuli. There was no evidence of any visual hallucinations and he endorsed auditory hallucinations were decreasing. His attention and concentration appeared intact and his recent and remote memory appeared grossly intact, but none were formally tested. Attention and edward ntration were intact. He was alert and oriented to person place and time. Insight and judgment appear improving and impulse control is limited. Discharge Data Studies Completed and Pending: Laboratory Results WBC 7.5 10^3/uL (4.0- 10.0) 08/28/22 11:58 RBC 4.68 10^6/uL (4.1 -5.3) 08/28/22 11:58 Hgb 14.5 g/dL (11.7-1 6.6) 08/28/22 11:58 Hct 41.3 % (42.0-52.0 ) L 08/28/22 11:58 MCV 88.2 fl (80-94) 08/28/22 11:58 MCH 31.0 pg (28.0-34. 0) 08/28/22 11:58 MCHC 35.1 g/dL (30.0-3 6.0) 08/28/22 11:58 RDW 12.2 % (12.1-15.1 ) 08/28/22 11:58 Plt Count 257 10^3/cmm (130 -400) 08/28/22 11:58 MPV 10.1 fL (7.4-10.4 ) 08/28/22 11:58 Neut % (Auto) 73.1 % 08/28/22 11:58 Lymph % (Auto) 18.9 % 08/28/22 11:58 [place] % (Auto) 6.4 % 08/28/22 11:58 Eos % (Auto) 0.8 % 08/28/22 11:58 Baso % (Auto) 0.7 % 08/28/22 11:58 Neut # (Auto) 5.46 10^3/uL (1.8 -7.7) 08/28/22 11:58 Lymph # (Auto) 1.4 10^3/uL (0.8- 4.8) 08/28/22 11:58 [place] # (Auto) 0.5 10^3/uL (0.2- 0.9) 08/28/22 11:58 Eos # (Auto) 0.1 10^3/uL (0.0- 0.8) 08/28/22 11:58 Baso # (Auto) 0.1 10^3/uL (0.0- 0.1) 08/28/22 11:58 Nucleated RBC % (a uto) 0 % 08/28/22 11:58 Nucleated RBCs # 0.0 /100WBC 08/28/22 11:58 Sodium 139 mmol/L (136-1 45) 08/28/22 11:58 Potassium 4.1 mmol/L (3.5-5 .1) 08/28/22 11:58 Chloride 102 mmol/L (98-10 7) 08/28/22 11:58 Carbon Dioxide 27 mmol/L (22-29) 08/28/22 11:58 Anion Gap 14.1 (5-19) 08/28/22 11:58 BUN 13 mg/dL (6-20) 08/28/22 11:58 Creatinine 0.8 mg/dL (0.7-1. 2) 08/28/22 11:58 GFR Calculation 107.1 mL/min (90- 130) 08/28/22 11:58 Glucose 94 mg/dL (65-115) 08/28/22 11:58 Calculated Osmolal ity 288 mOsm/kg (285- 295) 08/28/22 11:58 Calcium 9.2 mg/dL (8.5-10 .5) 08/28/22 11:58 Total Bilirubin 0.5 mg/dL (0.15-1 .2) 08/28/22 11:58 AST 24 U/L (0-40) 08/28/22 11:58 ALT 28 U/L (0-41) 08/28/22 11:58 Alkaline Phosphata se 95 U/L (40-130) 08/28/22 11:58 Total Protein 6.9 g/dL (6.6-8.7 ) 08/28/22 11:58 Albumin 4.1 g/dL (3.5-5.2 ) 08/28/22 11:58 Globulin 2.8 g/dL (1.3-4.6 ) 08/28/22 11:58 TSH 0.85 uIU/mL (0.27 -4.20) 08/28/22 11:58 Salicylates < 0.3 mg/dL (3-10 ) L 08/28/22 11:58 Urine Opiates Scre en Negative ng/mL (N egative) 08/28/22 12:15 Acetaminophen < 5.0 ug/mL (10-3 0) L 08/28/22 11:58 Ur Barbiturates Sc reen Negative ng/mL (N egative) 08/28/22 12:15 Ur Phencyclidine S crn Negative ng/mL (N egative) 08/28/22 12:15 Ur Amphetamines Sc reen Negative ng/mL (N egative) 08/28/22 12:15 U Benzodiazepines Scrn Positive ng/mL (N egative) H 08/28/22 12:15 Urine Cocaine Scre en Negative ng/mL (N egative) 08/28/22 12:15 U Marijuana (THC) Screen Negative ng/mL (N egative) 08/28/22 12:15 Ethyl Alcohol < 10 mg/dL (0-10) 08/28/22 11:58 Vitals: Last Vital Signs Temp 97.6 F 09/09/22 23:06 Pulse 60 09/09/22 23:06 Resp 18 09/09/22 23:06 BP 95/61 09/09/22 23:06 Pulse Ox 96 09/09/22 23:06 O2 Del Method 09/08/22 22:00 Discharge Plan Discharge Patient Disposition: Home Condition: Stable Prescriptions: New gabapentin 300 mg Capsule 300 mg PO TID 30 Days Qty: 90 1RF hydroxyzine pamoate 25 mg Capsule 50 mg PO Q6H PRN (Reason: Anxiety) 30 Days Qty: 120 1RF Latuda 80 mg Tablet 80 mg PO 1900 30 Days Qty: 30 1RF Continued buprenorphine-naloxone 8-2 mg Tablet, Sublingual 1 tab SUBLINGUAL BID Discharge Orders: Discharge Order (Routine); Ordered 09/09/22 Ordered By: Nabeel Marcum Referrals: [facility] [Other] - 4-7 days (You need to complete walk in status to restart services from Thursday through from 8:00 am to 5:00 pm and Thursday from 8:00 am to 4:00 pm. ) [facility]- Dr[facility] Aby Canela [Other] - 09/10/22 2:40 pm (Follow up) Discharge Diet: Regular Discharge Activity: Resume usual activity Patient Instructions: Opioid Safety Discharge Attestations NPU Time Spent in Discharge Care*: less than 30 min Specific Discharge Activities: Specific discharge activities: educating patient, discussing with family independence case manager/social workers/dc planners, documenting/other paperwork and evaluating patient/reviewing data Coding Level of Care Code Acute Chg FW DC note Diagnoses Paranoia F22 Auditory hallucination R44.0 Schizophrenia F20.9
[2022-09-09] MEDS: lurasidone 80 mg Tablet PO (19:38)
[2022-09-09 22:00] VITALS: RESP 18
[2022-09-09 23:00] VITALS: BP 95/61; PULSE 60; RESP 18; TEMP 36.4; O2SAT 96
[2022-09-09 23:06] VITALS: BP 95/61; PULSE 60; RESP 18; TEMP 36.4; O2SAT 96
== END 2022-09-09 23:06 | disposition home or self-care (01) | DRG 885 ==
LOC: ER 12:27 → NP 13:24
PROVIDERS: Admitting Provider Psychiatry & Neurology Psychiatry; Emergency Provider Emergency Medicine; Visit Provider Psychiatry & Neurology Psychiatry
DX: F20.9 Schizophrenia, unspecified (principal); F15.91 Other stimulant use, unspecified, in remission; F11.91 Opioid use, unspecified, in remission; Z81.3 Family history of other psychoactive substance abuse and dependence; F17.290 Nicotine dependence, other tobacco product, uncomplicated
CPT/HCPCS: 36415; 80053; 80306; 80307; 84443; 85025; 97150; 97165; 99285; J0573